=== PATIENT | male | born 1975 | race Caucasian/White ===

== ENCOUNTER 2018-01-04 22:53 | Emergency (ER) | END 2018-01-05 02:15 | disposition home or self-care (01) ==

== ENCOUNTER 2018-04-10 16:05 | Emergency (ER) | END 2018-04-10 20:31 | disposition home or self-care (01) ==

== ENCOUNTER → 2019-04-20 | Emergency (ER) | payer MEDICAID ==
[~2019-04-20] VITALS: Ht 188 cm; Wt 110.0 kg
[~2019-04-20] MED LIST: ACYC400T2 PO; ACYC800T5 PO; ALBU8.5H8 INH; AMOX1TAB10 PO; AZIT250T PO; FLUORESCEIN STRIP LEFT EYE ONE; HYDR-4011 PO; NAPR-688 PO; NAPR-985 PO; PRED20TA PO; TETRACAINE 0.5% 4 ML OPH LEFT EYE ONE
[2019-04-20 07:49] VITALS: BP 143/90; PULSE 78; RESP 18; Ht 188 cm; Wt 110.0 kg
--- NOTE | 2019-04-20 09:19 | ERD ---
ER Documentation Chief Complaint Chief Complaint painful bumps on forehead x 3 days , rt knee pain x 3 weeks HPI 43-year-old male presenting with painful bumps on his forehead x3 days. Patient is also complaining of right knee pain 3 weeks. Patient states he has some mild eye irritation. Medical history is asthma. NKDA. Surgical history denies. Social history denies ROS All systems reviewed and are negative except as per history of present illness. Medications Home Meds Active Scripts Naproxen* (Naprosyn*) 500 Mg Tablet, 500 MG PO BID PRN for PAIN AND/OR INFLAMMATION, #30 TAB Prov:HAZEL GRANT PA-C 04/20/19 Hydrocodone/Acetaminophen (Preston 5-325 Tablet) 1 Each Tablet, 1 TAB PO Q6H PRN for PAIN, #7 TAB Prov:HAZEL GRANT PA-C 04/20/19 Acyclovir* (Zovirax*) 800 Mg Tablet, 800 MG PO 5 TIMES DAILY for 7 Days, TAB Prov:HAZEL GRANT PA-C 04/20/19 Prednisone* (Prednisone*) 20 Mg Tab, 40 MG PO DAILY for 4 Days, TAB Prov:HAZEL GRANT PA-C 04/20/19 Albuterol Sulfate* (Proair HFA*) 8.5 Gm Hfa.aer.ad, 2 PUFF INH Q4, #1 INHALER Prov:NICOLAS BYRD 04/10/18 Azithromycin* (Zithromax*) 250 Mg Tablet, 250 MG PO .AILEEN DIRECTED, #6 TAB TAKE 500 MG (2 TABS) THE FIRST DAY THEN 250 MG (1 TAB) DAYS 2-5 Prov:NICOLAS BYRD 04/10/18 Hydrocodone/Acetaminophen (Preston 5-325 Tablet) 1 Each Tablet, 1 EACH PO Q6 for SEVERE PAIN LEVEL 7-10, #10 TAB Prov:CHRISTOPHER BUSBY DO 01/05/18 Naproxen* (Naproxen*) 500 Mg Tablet, 500 MG PO BID PRN for PAIN, #20 TAB Prov:CHRISTOPHER BUSBY DO 01/05/18 Amoxicillin/Potassium Clav (Amox-Clav 875-125 mg Tablet) 875-125 mg Tab, 1 TAB PO BID, #20 TAB Prov:CHRISTOPHER BUSBY DO 01/05/18 Acyclovir* (Acyclovir*) 400 Mg Tablet, 400 MG PO QID for 10 Days, TAB Prov:SHERYL KNAPP PA-C 03/03/16 Prednisone* (Prednisone*) 20 Mg Tab, 40 MG PO DAILY for 4 Days, TAB Prov:SHERYL KNAPP PA-C 03/03/16 Allergies Allergies: Coded Allergies: No Known Allergy (Unverified , 03/03/16) PMhx/Soc History of Surgery: No Anesthesia Reaction: No Hx Neurological Disorder: No Hx Respiratory Disorders: Yes (asthma) Hx Cardiac Disorders: No Hx Psychiatric Problems: No Hx Miscellaneous Medical Probl: No Hx Alcohol Use: No Hx Substance Use: Yes (crystal meth) Hx Tobacco Use: No Smoking Status: Former smoker FmHx Family History: No diabetes, No coronary disease, No other Physical Exam Vitals Vital Signs Date Temp Pulse Resp B/P (MAP) Pulse Ox O2 O2 Flow FiO2 Time Delivery Rate 04/20/19 98.2 78 18 143/90 99 07:49 (107) Physical Exam GENERAL: The patient is well-appearing, well-nourished, in no acute distress HEENT: Atraumatic. Conjunctivae are pink. Pupils equal, round, and reactive to light. Injection of the left sclera. No fluorescein uptake noted over the eye. No vesicles or dendritic lesions noted over the eye. Tympanic membranes clear bilaterally. Oropharynx clear. CHEST: Clear to auscultation bilaterally. There are no rales, wheezes or rhonchi. HEART: Regular rate and rhythm. No murmurs, clicks, rubs or gallops. No S3 or S4. EXTREMITIES: Equal pulses bilaterally. There is no peripheral clubbing, cyanosis or edema. No focal swelling or erythema. Full range of motion. Grossly neurovascularly intact. NEUROLOGIC: Alert and oriented. Cranial nerves II through XII intact. Motor strength in all 4 extremities with 5 out of 5 strength. Sensation grossly intact. Normal speech and gait. Babinski negative. DTR 2+ throughout. SKIN: Erythematous patches with central vesicles noted over the left forehead extending down the scalp. Results 24 hrs Current Medications Medications Dose Sig/Darion Start Time Status Last (Trade) Ordered Route PRN Stop Time Admin Dose Reason Admin Tetracaine 1 drop ONCE ONCE 04/20/19 DC HCl LEFT EYE 08:30 04/20/19 (Tetracaine 08:31 0.5% Steri-Unit Ayana) Fluorescein 1 strip ONCE ONCE 04/20/19 DC Sodium LEFT EYE 08:30 04/20/19 (Bxsor-C-Rwwg 08:31 p) Procedures/MDM DIAGNOSTIC IMAGING REPORT Patient: WAYNE CORREA : 1975 Age: 43 Sex: M MR #: [id number] DOS: 04/20/19 0808 Ordering MD: SANNA GRANT PA-C Location: [facility] Room/Bed: PROCEDURE: XR Knee Right 3 View(Routine) CLINICAL INDICATION: Right knee pain. TECHNIQUE: VIEWS: 3 IMAGES: 3 COMPARISON: None. FINDINGS: OSSEOUS STRUCTURES Fractures: None. JOINTS Joint Space(s): Relatively preserved although tiny medial and lateral compartment osteophytes are noted. Effusion: None. IMPRESSION: 1. No acute osseous abnormalities. MDM: 43-year-old male presenting with findings consistent with shingles. I have low suspicion for ocular involvement however patient does have irritation is recommended to follow-up with ophthalmology. Patient is discharged with supportive medications. I have low suspicion for bacterial infection. Patient is complaining of right knee pain. A low suspicion for acute fracture dislocation. Patient is recommended to follow-up with primary care for further evaluation. Patient is told symptoms change or worsen to return immediately to the ER. All questions answered at discharge Departure Diagnosis: Primary Impression: Knee pain Additional Impression: Shingles Condition: Stable Patient Instructions: Shingles (Herpes Zoster), Knee Pain, Uncertain Cause Referrals: [facility] YOU HAVE RECEIVED A MEDICAL SCREENING EXAM AND THE RESULTS INDICATE THAT YOU DO NOT HAVE A CONDITION THAT REQUIRES URGENT TREATMENT IN THE EMERGENCY DEPARTMENT. FURTHER EVALUATION AND TREATMENT OF YOUR CONDITION CAN WAIT UNTIL YOU ARE SEEN IN YOUR DOCTORS OFFICE WITHIN THE NEXT 1-2 DAYS. IT IS YOUR RESPONSIBILITY TO MAKE AN APPOINTMENT FOR FOL-UP CARE. IF YOU HAVE A PRIMARY DOCTOR --you should call your primary doctor and schedule an appointment IF YOU DO NOT HAVE A PRIMARY DOCTOR YOU CAN CALL OUR PHYSICIAN REFERRAL HOTLINE AT IF YOU CAN NOT AFFORD TO SEE A PHYSICIAN YOU CAN CHOSE FROM THE FOLLOWING [facility] [id number] [facility] [address]. [facility] [address] [facility] [address] [facility] [address] [facility] [address] [facility]. [facility] [address] Additional Instructions: FOLLOW UP WITH YOUR PRIMARY CARE PHYSICIAN TOMORROW.Return to this facility if you are not improving as expected. HAZEL GRANT PA-C Apr 20, 2019 09:19
== END | disposition home or self-care (01) ==
LOC: FTE 07:38
DX: M25.561 Pain in right knee (principal); B02.9 Zoster without complications; J45.909 Unspecified asthma, uncomplicated; Z87.891 Personal history of nicotine dependence
CPT/HCPCS: 73562; Z7610